=== PATIENT | male | born 1965 | race Caucasian/White ===

== ENCOUNTER 2021-02-19 14:16 | Emergency (ER) | payer OTHER ==
[2021-02-19] MEDS ORDERED: Apixaban 5 MG TAB PO SCH (17:45)
== END 2021-02-19 17:49 | disposition home or self-care (01) ==
LOC: CSHERS 14:16
DX: I82.401 Acute embolism and thrombosis of unspecified deep veins of right lower extremity (principal)

== ENCOUNTER 2021-03-11 08:46 | Inpatient (IN) | payer OTHER ==
[2021-03-11 10:22] LABS: #Eosinphils 0.1 10x3/uL (0.0-0.5); #Monocytes 0.5 10x3/uL (0.0-1.1); #Neutrophils 5.4 10x3/uL (1.5-8.4); %Basophils 0.4 % (0.0-2.0); %Lymphocytes 14.8 % (18.0-47.0); %Monocytes 6.6 % (0.0-10.0); %Neutrophils 76.5 % (40.0-75.0); Hemoglobin 12.5 g/dL (13.5-17.5); Mean Corpuscular HGB CONC 33.7 g/dL (32.0-36.0); Mean Corpuscular Hemoglobin 27.2 pg (27.0-33.0); Mean Corpuscular Volume 80.7 fl (81.2-95.1); Mean Platelet Volume 10.6 fl (7.4-10.4); Platelet Count 271 10x3/uL (150-450); RBC Distribution Width 17.2 % (11.5-14.5); White Blood Cell (WBC) Count 7.1 10x3/uL (3.5-10.5)
[2021-03-11 10:28] LABS: ALT (SGPT) 23 U/L (8-55); AST (SGOT) 19 U/L (5-34); Albumin 4.2 g/dL (3.5-5.0); Alkaline Phosphatase 39 U/L (40-110); Anion Gap 12 mmol/L (10-20); BUN (Urea Nitrogen) 23 mg/dL (8.4-25.7); Bilirubin, Total 0.4 mg/dL (0.2-1.2); Calc. Creatinine Clearance 0 mL/min (70-130); Carbon Dioxide 24 mmol/L (22-29); Chloride 104 mmol/L (98-107); Globulin 2.6 g/dL (2.4-3.5); Glucose 128 mg/dL (70-105); Potassium 5.1 mmol/L (3.5-5.1); Protein, Total 6.8 g/dL (6.0-8.3); Sodium 135 mmol/L (136-145)
[2021-03-11 11:31] LABS: PTT 23.5 sec (22.0-33.0); Prothrombin Time 11.2 sec (9.5-12.1)
[2021-03-11 14:41] VITALS: BMI 29.7
[2021-03-11] MEDS ORDERED: Ondansetron PF 4 MG/2 ML Vial IVP PRN (15:14)
[2021-03-11] MEDS ORDERED: GoLYTELY 4,000 ml Bottle PO SCH (16:30)
[2021-03-11] MEDS: Sodium Chloride 0.9% 1,000 ML IV SCH (18:53)
[2021-03-11] MEDS: Famotidine/PF 20 mg/2ml Vial SLOW IVP SCH ×2 (21:19→21:37)
[2021-03-11] MEDS: diphenhydrAMINE 50 MG/ML VIAL IVP PRN (22:00)
[2021-03-12] MEDS: Sodium Chloride 0.9% 1,000 ML IV SCH ×3 (00:37→16:48)
[2021-03-12] MEDS: diphenhydrAMINE 50 MG/ML VIAL IVP PRN (00:38)
[2021-03-12 04:13] LABS: SARS-CoV-2 PCR by NAA Not Detected (NotDetected)
[2021-03-12 04:43] LABS: #Eosinphils 0.2 10x3/uL (0.0-0.5); #Monocytes 0.7 10x3/uL (0.0-1.1); #Neutrophils 5.2 10x3/uL (1.5-8.4); %Basophils 0.4 % (0.0-2.0); %Eosinophils 3.2 % (0.0-6.0); %Lymphocytes 16.9 % (18.0-47.0); %Monocytes 9.5 % (0.0-10.0); %Neutrophils 69.6 % (40.0-75.0); Hemoglobin 10.3 g/dL (13.5-17.5); Mean Corpuscular HGB CONC 32.6 g/dL (32.0-36.0); Mean Corpuscular Hemoglobin 26.8 pg (27.0-33.0); Mean Corpuscular Volume 82.1 fl (81.2-95.1); Mean Platelet Volume 10.4 fl (7.4-10.4); Platelet Count 201 10x3/uL (150-450); RBC Distribution Width 17.8 % (11.5-14.5); Red Blood Cell (RBC) Count 3.85 10x6/uL (4.32-5.72); White Blood Cell (WBC) Count 7.5 10x3/uL (3.5-10.5)
[2021-03-12 05:00] LABS: ALT (SGPT) 20 U/L (8-55); AST (SGOT) 16 U/L (5-34); Albumin 3.6 g/dL (3.5-5.0); Alkaline Phosphatase 33 U/L (40-110); Anion Gap 13 mmol/L (10-20); BUN (Urea Nitrogen) 14 mg/dL (8.4-25.7); Bilirubin, Total 0.6 mg/dL (0.2-1.2); Calc. Creatinine Clearance 111 mL/min (70-130); Calcium 8.3 mg/dL (7.8-10.44); Carbon Dioxide 24 mmol/L (22-29); Chloride 108 mmol/L (98-107); Glucose 91 mg/dL (70-105); Potassium 4.4 mmol/L (3.5-5.1); Protein, Total 5.6 g/dL (6.0-8.3); Sodium 141 mmol/L (136-145)
[2021-03-12] MEDS: Famotidine/PF 20 mg/2ml Vial SLOW IVP SCH ×3 (09:51→21:02)
[2021-03-12] MEDS ORDERED: PROPOFOL 20 ML ONE ×2 (18:09→18:31)
[2021-03-12] MEDS ORDERED: PROPOFOL 0 ML ONE (18:09)
[2021-03-12] MEDS ORDERED: Melatonin 3 MG TAB PO PRN (22:46)
[2021-03-13 05:31] LABS: #Eosinphils 0.3 10x3/uL (0.0-0.5); #Monocytes 0.6 10x3/uL (0.0-1.1); #Neutrophils 2.7 10x3/uL (1.5-8.4); %Basophils 0.6 % (0.0-2.0); %Eosinophils 5.6 % (0.0-6.0); %Lymphocytes 22.9 % (18.0-47.0); %Monocytes 12.2 % (0.0-10.0); %Neutrophils 58.1 % (40.0-75.0); Hemoglobin 9.6 g/dL (13.5-17.5); Mean Corpuscular Hemoglobin 27.1 pg (27.0-33.0); Mean Corpuscular Volume 82.2 fl (81.2-95.1); Mean Platelet Volume 10.4 fl (7.4-10.4); Platelet Count 175 10x3/uL (150-450); RBC Distribution Width 17.7 % (11.5-14.5); Red Blood Cell (RBC) Count 3.54 10x6/uL (4.32-5.72); White Blood Cell (WBC) Count 4.7 10x3/uL (3.5-10.5)
[2021-03-13] MEDS: Sodium Chloride 0.9% 1,000 ML IV SCH ×2 (05:41→09:40)
[2021-03-13 05:43] LABS: Anion Gap 13 mmol/L (10-20); BUN (Urea Nitrogen) 9 mg/dL (8.4-25.7); Calc. Creatinine Clearance 109 mL/min (70-130); Calcium 8.4 mg/dL (7.8-10.44); Carbon Dioxide 24 mmol/L (22-29); Chloride 109 mmol/L (98-107); Glucose 87 mg/dL (70-105); Potassium 4.1 mmol/L (3.5-5.1); Sodium 142 mmol/L (136-145)
[2021-03-13] MEDS ORDERED: PROPOFOL 40 ML ONE (06:57)
[2021-03-13] MEDS ORDERED: Lidocaine 1% PF 5 ML VIAL ONE (06:57)
[2021-03-13] MEDS: Apixaban 5 MG TAB PO SCH ×2 (09:40→09:57)
[2021-03-13 15:15] VITALS: BP 150/75; TEMP 98.5
[2021-03-13] MEDS ORDERED: Apixaban 5 MG TAB PO SCH (21:00)
== END 2021-03-13 15:45 | disposition home or self-care (01) | DRG 378 ==
LOC: CSHERS 08:46 → CSHTELE 12:17 → INTOOBSV 14:08 → UNDOADMOB 14:08 → OBSVTOIN 03-13 14:55
PROVIDERS: ADMIT Emergency Medicine; ATTEND Family Medicine
PROC: 0DJD8ZZ Inspection of Lower Intestinal Tract, Via Natural or Artificial Opening Endoscopic (ICD-10-PCS; 2021-03-12)
PROC: 0DB58ZX Excision of Esophagus, Via Natural or Artificial Opening Endoscopic, Diagnostic (ICD-10-PCS; principal; 2021-03-13)
DX: K92.2 Gastrointestinal hemorrhage, unspecified (principal); D62 Acute posthemorrhagic anemia; K57.30 Diverticulosis of large intestine without perforation or abscess without bleeding; Z20.822 Contact with and (suspected) exposure to COVID-19; K22.70 Barrett's esophagus without dysplasia; K44.9 Diaphragmatic hernia without obstruction or gangrene; Z86.718 Personal history of other venous thrombosis and embolism; Z88.0 Allergy status to penicillin; Z88.8 Allergy status to other drugs, medicaments and biological substances; K21.9 Gastro-esophageal reflux disease without esophagitis; G47.00 Insomnia, unspecified; K80.20 Calculus of gallbladder without cholecystitis without obstruction
CPT/HCPCS: 74177; 80048; 80053; 82274; 85025; 85610; 85730; 86850; 86900; 86901; 87635; 88305; 94760; 96374; 96375; 96376; G0378; J1200; J2405; J2704; S0028; U0003; U0005